=== PATIENT | female | born 1945 | race Caucasian/White ===

== ENCOUNTER 2016-11-13 06:49 | Inpatient (IN) ==
--- NOTE | 2016-11-12 21:06 | Discharge Summary ---
<Nadia Espinal - Last Filed: 11/12/16 21:02> Date of Encounter: 11/12/16 - Discharge Diagnosis (1) Rotator cuff tear arthropathy of right shoulder Priority: Primary Status: Acute (2) Obesity Priority: Secondary Status: Chronic Qualifiers: Obesity type: unspecified obesity type Obesity severity: unspecified obesity severity Qualified Code(s): E66.9 - Obesity, unspecified (3) Chronic pain Priority: Secondary Status: Chronic Comments: Takes [place] 5/325 TID, LD 10/16/16 #90. Continue this. Continue Gabapentin Qualifiers: Chronic pain type: other chronic pain Qualified Code(s): G89.29 - Other chronic pain (4) Hypothyroidism Priority: Secondary Status: Chronic Qualifiers: Hypothyroidism type: unspecified Qualified Code(s): E03.9 - Hypothyroidism , unspecified - Discharge Medications Home Medications: Gabapentin [Neurontin] 300 mg PO TID 06/17/16 [History] Levothyroxine [Synthroid] 50 mcg PO DAILY 06/17/16 [History] diazePAM [Valium] 5 mg PO DAILY 06/17/16 [History] HYDROcodone/Acet 5/325 mg [[place] 5-325 mg] 1 tab PO DAILY #10 tab 11/12/16 [Rx] Alendronate Sodium [Fosamax] 70 mg PO QWEEK 11/13/16 [History] Calcium Carbonate [Calcium] 500 mg PO DAILY 11/13/16 [History] Meloxicam [Mobic] 15 mg PO DAILY 11/13/16 [History] Naproxen Sodium [Aleve] 220 mg PO Q12H PRN 11/13/16 [History] Oxycodone HCl 15 mg PO TID PRN 11/13/16 [History] Allergies/Adverse Reactions: Allergies ibuprofen [From Motrin] Adverse Reaction (Verified 11/13/16 07:45) Watery Eye Primary care physician: Lucius Vallecillo - Patient Status Disposition: Home, Self-Care Condition: Good - Discharge Instructions Follow Up With: Lucius Vallecillo MD [Primary Care Provider] - - Hospital Course Hospital course: Ms. Pemberton is a 71 year old female - Time Spent with Patient Total time spent providing and/or coordinating discharge services: <Dean Lemon - Last Filed: 11/14/16 06:45> Date of Encounter: 11/14/16 Time of Encounter: 06:45 - Discharge Diagnosis (1) Hypothyroidism Priority: Secondary Status: Chronic Qualifiers: Hypothyroidism type: unspecified Qualified Code(s): E03.9 - Hypothyroidism , unspecified (2) Thrombocytopenia Priority: Secondary Status: Acute (3) Rotator cuff tear arthropathy of right shoulder Priority: Primary Status: Acute (4) Obesity Priority: Secondary Status: Chronic Qualifiers: Obesity type: unspecified obesity type Obesity severity: unspecified obesity severity Qualified Code(s): E66.9 - Obesity, unspecified Primary care physician: Lucius Vallecillo - Patient Status Functional capacity at discharge: uses cane/walker Overall status at discharge: patient is progressing back to baseline - Hospital Course Hospital course: Ms. Pemberton is a 71 year old female The patient had an uneventful postoperative course. They received antibiotics and physical therapy and were discharged in stable condition. There will follow -up in the office in 2 weeks. - Time Spent with Patient Total time spent providing and/or coordinating discharge services:
[2016-11-13] MEDS ORDERED: Ringers Solution, Lactated 1,000 ML IVC SCH (07:15)
[2016-11-13] MEDS ORDERED: CeFAZolin Pre 2,000 MG/100 ML 2,000 MG/100 ML BAG IVPB ONE (07:15)
[2016-11-13] MEDS ORDERED: Lidocaine -MPF 1% 2 ML VIAL ID ONE (07:15)
[2016-11-13] MEDS ORDERED: Famotidine 20 MG/2 ML VIAL IVP ONE (07:16)
--- NOTE | 2016-11-13 07:47 | History & Physical Report ---
Date of Encounter: 11/13/16 Time of Encounter: 07:46 24 Hour HP Update - Instructions Instructions: If the History and Physical is less than 30 days old and was completed prior to A.M. admission and or procedure and has NOT been updated on calendar day of procedure please complete this update prior to performing procedure. - Update Patient reports changes in Medical Condition: No Changes in examination, assessment, or condition: No Changes in Medication: No Preop tests/diagnostics Reviewed: Yes Surgery Remains Indicated: Yes Consent for Planned Operative Procedure(s) Verified: Yes - Pre-Operative Checklist Preoperative Checklist Indicated: No Prophylactic Antibiotic Ordered: Yes Is VTE Prophylaxis Indicated?: Yes
[2016-11-13] MEDS ORDERED: *HR* Midazolam HCl 2 MG/2 ML VIAL ONE (08:01)
[2016-11-13] MEDS ORDERED: *HR* Propofol 200 MG/20 ML VIAL IVP ONE (08:01)
[2016-11-13] MEDS ORDERED: *HR* FentaNYL (PF) 100 MCG/2 ML VIAL ONE (08:01)
[2016-11-13] MEDS ORDERED: Lidocaine -MPF 2% 2 ML VIAL ONE (08:03)
--- NOTE | 2016-11-13 08:13 | Anesthesia Evaluation PreOp ---
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: Other (Chronic Back Pain Lumbar DDD) Other Medical History: Thyroid, Other (Obese) Anesthesia History: No Prior Anesthetic Complications : No Alcohol Use: rarely Drug use: none Medications and Allergies Gabapentin [Neurontin] 300 mg PO TID 06/17/16 [History] Levothyroxine [Synthroid] 50 mcg PO DAILY 06/17/16 [History] diazePAM [Valium] 5 mg PO DAILY 06/17/16 [History] HYDROcodone/Acet 5/325 mg [[place] 5-325 mg] 1 tab PO DAILY #10 tab 11/12/16 [Rx] Alendronate Sodium [Fosamax] 70 mg PO QWEEK 11/13/16 [History] Calcium Carbonate [Calcium] 500 mg PO DAILY 11/13/16 [History] Meloxicam [Mobic] 15 mg PO DAILY 11/13/16 [History] Naproxen Sodium [Aleve] 220 mg PO Q12H PRN 11/13/16 [History] Oxycodone HCl 15 mg PO TID PRN 11/13/16 [History] Allergies ibuprofen [From Motrin] Adverse Reaction (Verified 11/13/16 07:45) Watery Eye - Meds/Allergy Pre-op Review Medications Reviewed: Yes Allergies Reviewed: Yes Beta Blockers on Current Med List: No Anesthesia Results - Labs Laboratory Tests 10/24/16 10/24/16 09:30 09:30 Hgb 13.3 Hct 39.9 Plt Count 138 L Sodium 141 Potassium 3.8 BUN 21 H Creatinine 0.87 - Imaging EKG: report reviewed (SB) Anesthesia Exam O2 Sat Height 1.52 m Height 1.52 m Height 1.52 m Weight 81.193 kg Weight 81.193 kg Weight 81.193 kg O2 Sat by Pulse Oximetry 90 O2 Sat by Pulse Oximetry 90 Vital Signs Temp Pulse Resp BP Pulse Ox 98.1 F 64 18 114/76 90 11/13/16 07:21 11/13/16 07:21 11/13/16 07:21 11/13/16 07:21 11/13/16 07:21 Height: 5'0 Weight: 179 lbs NPO (# of Hours): MN Pain Scale: 0 - HEENT Pupil (Motor): Pupils equal, EOMI Mallampati: III Teeth: Edentulous Denture Type: Upper: Complete Oral Opening: Less than or equal to 3 - SUPERVISOR [employer]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
[2016-11-13] MEDS ORDERED: ROPIVACAINE HCL/PF 0.5% 30 ML VIAL ONE (08:17)
[2016-11-13] MEDS ORDERED: Bupivacaine/Clonidine Syringe 1 EACH SYRINGE ONE (08:18)
[2016-11-13] MEDS ORDERED: *HR* Labetalol 100 MG/20 ML MDV IVP PRN (08:37)
[2016-11-13] MEDS ORDERED: Ondansetron 4 MG/2 ML VIAL IVP PRN ×2 (08:37→10:37)
--- NOTE | 2016-11-13 08:40 | Anesthesia Procedures ---
Date of Encounter: 11/13/16 Time of Encounter: 08:38 Procedures: Anesthesia - Nerve Block Procedure Date: 11/13/16 Time: 08:38 Allergies/Adv Reactions: ibuprofen Pre-op Diagnosis: right shoulder rc arthropathy Surgical Procedure: right reverse TSA Checklist: Correct Patient Identifier, Correct procedure, History checked Correct side: Right Blood Thinner: No Monitor Applied: EKG, BP, Pulse Oximetry Supplemental Oxygen via Nasal Cannula (L/min): 2 Sedation: Fentanyl (mcg): 100 Indication: Post Op Analgesia Pre-op Neuro Deficits: No Block Type: Supraclavicular, Other (CP) Catheter placed: No Sterile Technique: Yes Ultrasound used: Yes Anatomy identified: Yes Visual spread of Local: Yes Neuro Stimulation: No Blood on Needle Aspiration: No Smooth Injection of Local: Yes Pain with Injection of Local: No Prep: Chlorhexadine Needle: 22 x 50 mm Stimuplex Local: 0.25% Bupivicaine w/Clonidine 20 mcg/cc, Tetracaine, Ropivacaine Volume (cc): 40 Number of Attempts: 1 Complications: None/effective block Vitals: Vital Signs/O2 Sat/Glucose, Most Recent Temp Pulse Resp BP Pulse Ox 98.1 F 51 16 130/89 99 11/13/16 07:25 11/13/16 08:20 11/13/16 08:20 11/13/16 08:20 11/13/16 08:20
[2016-11-13] MEDS ORDERED: *HR* Succinylcholine 200 MG/10 ML VIAL IVP ONE (08:48)
[2016-11-13] MEDS ORDERED: Lidocaine -MPF 4% 5 ML AMPUL ONE (08:48)
[2016-11-13] MEDS ORDERED: Ondansetron 4 MG/2 ML VIAL ONE (09:01)
[2016-11-13] MEDS ORDERED: EPHEDrine 50 MG/ML VIAL ONE (09:17)
--- NOTE | 2016-11-13 09:31 | Orthopedic Operative Note ---
Date of procedure: 11/13/16 Pre-op diagnosis: Right shoulder rotator cuff tear arthropathy Post-op diagnosis: same Procedure: Procedure: Right Total Shoulder Replacment Reverse, Estimated blood loss: 100 cc Hardware: Metal and polyethylene replacement: Arthrex small glenoid baseplate, 2 4.5 screws. 1 6.5 screw, 36+4 glenosphere, 6 humeral stem, poly insert 6 Exam Under anesthesia: Full motion and no instability Procedural Notes: Grade 4 arthritic changes humeral head irreparable tear supraspinatus tendon. Operative procedure: The patient was brought to the operating room and placed on the operating room table. After general anesthesia was administered the operative shoulder was examined. Findings were noted. The patient was placed in the modified beachchair position. All pressure points were padded appropriately. And the head was stabilized in the neutral position. The operative extremity was prepped and draped in the sterile surgical fashion. The patient received IV antibiotics prior to skin incision. A standard deltopectoral approach was made to the operative shoulder. Incision was made to the skin and subcutaneous tissue,hemo stasis was obtained with Bovie cautery. Using careful blunt dissection the cephalic vein was identified and mobilized medially. The deltopectoral interval was developed and the clavipectoral fascia was incised. The subscap was released off the lesser tuberosity and tagged with #2 FiberWire suture it was irreparable. The humerus was dislocated patient noted to have irreparable tear supraspinatus tendon, and the humeral cut was made along the anatomic neck. Patient noted to have grade 4 arthritic changes humeral head. Anterior and posterior Bankart retractors were placed to expose the glenoid. The glenoid guide was seated and the centering hole was made. It was reamed with the appropriate reamer. The small baseplate was seated and secured with (2) 4.5 screws and one 6.5 screw. The baseplate was irrigated and dried and the 36+4 Glenosphere was seated and secured with the George taper. The George taper was tested and found to be secure the humerus was redislocated and prepared with the diaphyseal reamers, followed by a broaching process up to the appropriate size 6 in the patient's anatomic version. The metaphyseal reamer was then utilized. Trial reduction found the shoulder to be relocatable. Trial components were removed. The appropriate 6 stem was impacted in place in the patient's anatomic version. Trial reduction found the shoulder to be relocatable and stable with the appropriate 6 Trial component was removed and the real 6 Meghan was seated and secured the shoulder was reduced. The shoulder had excellent motion and excellent stability and no evidence of dislocation. The deep tissue was irrigated with pulse irrigation. The deltopectoral interval was closed with a running #1 PDS suture, subcutaneous tissue was irrigated and closed with 0 PDS suture, the skin was closed with Dermabond. The patient was placed in a sterile dressing, abduction brace and extubated. The patient was then transferred to the recovery room in stable condition. Anesthesia: ARLEY Surgeon: Dean Lemon Perfect Binder Setter: Nadia Espinal Condition: stable Disposition: PACU
--- NOTE | 2016-11-13 10:14 | Anesthesia Evaluation Post Op ---
Date of Encounter: 11/13/16 Time of Encounter: 10:13 - Vital Signs Vital Signs: Vital Signs/O2 Sat/Glucose, Most Recent Temp Pulse Resp BP Pulse Ox 97.8 F 76 16 128/81 97 11/13/16 09:45 11/13/16 10:05 11/13/16 10:05 11/13/16 10:05 11/13/16 10:05 - Lungs Lungs: Clear Ascult./Percussion - Airway Airway: Non-obstructed - Cardiovascular Regular Rate - Mental Status Mental Status: Alert & Oriented, Answers Appropriately - Pain Pain Scale: 0 Pain Scale used: Numeric (1 - 10) - Nausea Vomiting Nausea Vomiting: Not Present - Hydration Hydration: NPO - Discharge PostOp Status: Transfer Patient to floor
[2016-11-13 10:21] LABS: Hematocrit 36.1 % (35.3-44.9); Hemoglobin 11.8 g/dL (11.5-15.4)
[2016-11-13] MEDS ORDERED: *HR* OxyCODONE Immed Rel 5 MG TABLET PO PRN ×2 (10:37)
[2016-11-13] MEDS ORDERED: MOM Conc 10 ML UD.LIQ PO PRN (10:37)
[2016-11-13] MEDS ORDERED: Temazepam 15 MG CAPSULE PO PRN (10:37)
[2016-11-13] MEDS ORDERED: Naloxone 0.4 MG/ML INJ IVP PRN (10:37)
[2016-11-13] MEDS ORDERED: NON-FORMULARY MEDICATION 1 EACH EACH (Alendronate Sodium [Fosamax] 70 MG) PO SCH (10:37)
[2016-11-13] MEDS ORDERED: *HR* HYDROmorphone (PF) 1 MG/ML SYRINGE IVP PRN (10:37)
[2016-11-13] MEDS ORDERED: Sennosides 8.6 MG TABLET PO PRN (10:37)
[2016-11-13] MEDS: Ringers Solution, Lactated 1,000 ML IVC SCH ×2 (12:08→23:56)
[2016-11-13] MEDS: Gabapentin 300 MG CAPSULE PO SCH ×3 (12:11→20:50)
[2016-11-13] MEDS: diazePAM 5 MG TABLET PO SCH (12:15)
[2016-11-13] MEDS: *HR* Enoxaparin 30 MG/0.3 ML SYRINGE SQ SCH (17:54)
[2016-11-13] MEDS: ceFAZolin 2,000 MG in D5% in Water 100 ML IVPB SCH ×2 (17:54→23:57)
[2016-11-13] MEDS ORDERED: *HR* Enoxaparin 30 MG/0.3 ML SYRINGE SQ SCH (18:00)
[2016-11-14] MEDS: *HR* Enoxaparin 30 MG/0.3 ML SYRINGE SQ SCH (05:58)
[2016-11-14 06:31] LABS: Hematocrit 37.4 % (35.3-44.9); Hemoglobin 12.2 g/dL (11.5-15.4)
--- NOTE | 2016-11-14 06:46 | Orthopedics Progress Note ---
Date of Encounter: 11/14/16 Time of Encounter: 06:46 - Assessment and Plan (1) Hypothyroidism Current Visit: No Status: Chronic Qualifiers: Hypothyroidism type: unspecified Qualified Code(s): E03.9 - Hypothyroidism , unspecified (2) Thrombocytopenia Current Visit: No Status: Acute (3) Rotator cuff tear arthropathy of right shoulder Current Visit: Yes Status: Acute (4) Obesity Current Visit: Yes Status: Chronic Qualifiers: Obesity type: unspecified obesity type Obesity severity: unspecified obesity severity Qualified Code(s): E66.9 - Obesity, unspecified Subjective Interval history: Patient was seen this morning doing well without complaints. Afebrile vital signs stable. Operative extremity: Neurovascularly intact Dressing clean dry and intact Calves nontender Assessment and plan: Continue with postoperative care Discharged today Objective Vital signs: Vital Signs Temp Pulse Resp BP Pulse Ox 11/14/16 04:04 98.1 F 69 16 118/64 95 11/13/16 23:51 97.8 F 71 16 118/53 94 11/13/16 20:44 97.7 F 56 16 109/68 93 11/13/16 14:01 72 18 116/75 96 11/13/16 13:40 97.4 F L 72 18 116/75 96 11/13/16 12:35 97.3 F L 66 18 118/72 97 11/13/16 11:40 97.4 F L 67 18 122/93 98 11/13/16 11:04 97.6 F 65 18 106/65 99 11/13/16 10:30 97.6 F 65 18 120/68 97 11/13/16 10:15 97.2 F L 68 16 118/72 98 11/13/16 10:05 76 16 128/81 97 11/13/16 09:55 80 16 132/80 97 11/13/16 09:45 97.8 F 97 14 134/89 97 11/13/16 08:20 51 16 130/89 99 11/13/16 07:25 98.1 F 63 18 114/76 90 11/13/16 07:21 98.1 F 64 18 114/76 90 Intake and Output 11/13/16 11/13/16 11/14/16 15:59 23:59 07:59 Intake Total 1000 / 1000 1340 / 1340 100 / 100 Output Total 500 / 500 350 / 350 Balance 500 / 500 990 / 990 100 / 100 Intake: IV Fluids 1000 / 1000 1100 / 1100 100 / 100 Lactated Ringers 1,000 ML 1000 / 1000 1000 / 1000 @ 75 mls/hr IVC .[id number] MONICA Rx#:[id number] Ancef 2,000 MG In 100 / 100 100 / 100 Dextrose 5% 100 ML @ 200 mls/hr IVPB Q8HR MONICA Rx#: [id number] Oral 240 / 240 Output: Urine 400 / 400 350 / 350 Estimated Blood Loss 100 / 100 Other: # Voids 1 1 - Labs CBC & BMP: 11/14/16 06:09 - VTE Documentation of Mechanical Device: Intermittent pneumatic compression device Consult Discharge Plan - Plan Referrals: Lucius Vallecillo MD [Primary Care Provider] -
[2016-11-14 07:04] VITALS: BP 115/55
[2016-11-14] MEDS: Gabapentin 300 MG CAPSULE PO SCH (08:23)
[2016-11-14] MEDS: diazePAM 5 MG TABLET PO SCH (08:25)
== END 2016-11-14 12:40 | disposition home or self-care (01) | DRG 483 ==
LOC: SAMDAY 06:49 → 3NENU 10:29
PROVIDERS: ADMIT Orthopaedic Surgery; ATTEND Orthopaedic Surgery

== ENCOUNTER 2017-04-04 15:30 | Observation (INO) ==
[2017-04-04] MEDS ORDERED: Nitroglycerin 0.4 MG TAB.SUBL SL PRN (15:59)
[2017-04-04] MEDS ORDERED: Aspirin 81 MG TAB.CHEW PO ONE (15:59)
[2017-04-04 16:24] LABS: Basophils % 0.5 %; Eosinophils # 0.1 K/mcL (0.0-0.6); Eosinophils % 2.2 %; Hematocrit 38.3 % (35.3-44.9); Hemoglobin 12.5 g/dL (11.5-15.4); Immature Granulocytes % 0.2 % (0-4); Lymphocytes # 1.5 K/mcL (0.6-4.6); Lymphocytes % 25.6 %; Mean Corpuscular HGB Conc 32.6 g/dL (31.6-35.5); Mean Corpuscular Hemoglobin 29.5 pg (28.0-33.3); Mean Corpuscular Volume 90.3 fL (83.0-100.0); Mean Platelet Volume 9.9 fL (9.4-12.4); Monocytes # 0.6 K/mcL (0.0-1.3); Neutrophils # 3.6 K/mcL (1.6-8.9); Platelet Count 135 K/mcL (140-400); Red Blood Count 4.24 M/mcL (3.82-4.97); Red Cell Distribution Width 15.1 % (11.5-14.5); Segmented Neutrophils % 61.5 %
[2017-04-04 16:36] LABS: BUN/Creatinine Ratio 16 (6-26); Blood Urea Nitrogen 16 mg/dL (7-20); Calcium 9.6 mg/dL (8.6-10.8); Carbon Dioxide 30 mEq/L (19-29); Chloride 106 mEq/L (98-109); Glucose 81 mg/dL (70-99); Osmolality,Calculated 294 (280-300); Potassium 3.9 mEq/L (3.5-4.5); Sodium 142 mEq/L (136-145); eGFR For African Americans > 60 (> 60); eGFR For Non-African Americans 57 (> 60)
--- NOTE | 2017-04-04 16:38 | Emergency Department Note ---
Disposition Clinical Impression: Chest pain Qualifiers: Chest pain type: unspecified Qualified Code(s): R07.9 - Chest pain, unspecified Disposition: Admitted As Inpatient Condition: Good Time of Disposition: 17:12 General Adult HPI - General Chief complaint: ED Chest Pain Stated complaint: CP/FANNY Time Seen by Provider: 04/04/17 15:50 Source: patient Limitations: no limitations Nursing Notes Reviewed: Yes Vital Signs Reviewed: Yes - History of Present Illness HPI Narrative: 71-year-old female presenting to the emergency department from urgent care for chest pain rule out. Patient was seen in urgent care who completed an EKG showing sinus bradycardia and right bundle branch block. Today patient was at work and around 12:30 she started having chest pain with associated diaphoresis. She denies vomiting or radiation of the pain. The pain was substernal and felt like a pressure. Patient has never had a cardiac workup in the past. Denies having stent placements. Denies stroke or being on anticoagulation. Patient currently having chest pressure at this time. Pain Scale: 9 - Related Data Home Medications Medication Instructions Recorded Confirmed Gabapentin [Neurontin] 300 mg PO TID 06/17/16 04/04/17 Levothyroxine [Synthroid] 50 mcg PO QAM 06/17/16 04/04/17 diazePAM [Valium] 5 mg PO DAILY 06/17/16 04/04/17 Calcium Carbonate [Calcium] 500 mg PO DAILY 11/13/16 04/04/17 Naproxen Sodium [Aleve] 220 mg PO Q12H PRN 11/13/16 04/04/17 Oxycodone HCl [Oxycodone HCl] 10 mg PO TID PRN 04/04/17 04/04/17 Allergies Allergy/AdvReac Type Severity Reaction Status Date / Time ibuprofen [From Motrin] AdvReac Watery Eye Verified 11/13/16 07:45 All systems ED: reviewed and negative except as stated. Constitutional: Denies: fever, chills, weakness Eyes: Reports: as per HPI Cardiovascular: Reports: chest pain, palpitations. Denies: syncope Respiratory: Denies: cough, dyspnea, wheezes, hemoptysis Gastrointestinal: Reports: nausea. Denies: abdominal pain, vomiting Genitourinary: Reports: as per HPI Musculoskeletal: Reports: as per HPI Integumentary: Reports: as per HPI Neurological: Denies: headache, numbness, paresthesias Psychiatric: Reports: as per HPI Endocrine: Reports: as per HPI Hematological/Lymphatic: Reports: as per HPI Allergic/Immunologic: Reports: as per HPI Past Medical History - Past Medical History Attestation: Yes The following information was validated with the patient. 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 Absent: scleral icterus, conjunctival injection - Chest Chest inspection: Present: normal inspection, symmetric chest wall rise. Absent : tenderness, rash - Respiratory Respiratory exam: Present: normal lung sounds bilaterally. Absent: respiratory distress, wheezes, stridor - Cardiovascular Cardiovascular exam: Present: normal rhythm, bradycardia, normal heart sounds - Abdominal Exam Abdominal exam: Present: soft, Non-Tender. Absent: distention, guarding, rebound - Extremities Exam Extremities exam: Present: normal inspection, full ROM - Neurological Exam Neurological exam: Present: alert, oriented X3 - Psychiatric Psychiatric exam: Present: normal affect, normal mood - Skin Skin exam: Present: warm, intact Course Course Narrative: 71-year-old female presenting to the emergency department with chief complaint of chest pain. Patient states while at work she had acute onset of chest pain concerning for ACS. EKG did show T-wave abnormalities in V1 and 2 and 3 although this was seen on previous EKG. We will do basic lab work cardiac troponin and EKG. Disposition admission at this time. - Reevaluation(s) Reevaluation #1: Troponin within normal limits. Patient's heart score is greater than 4. Admission to hospitalist Dr. West. He accepts the patient. Time: 17:11 Vital Signs Temperature 98.1 F 04/04/17 15:31 Pulse Rate 51 04/04/17 15:31 Respiratory Rate 18 04/04/17 15:31 Blood Pressure 139/72 04/04/17 15:31 O2 Sat by Pulse Oximetry 94 04/04/17 15:31 Temperature 97.9 F 10/04/17 19:09 Pulse Rate 83 04/04/17 19:09 Respiratory Rate 18 04/04/17 19:09 Blood Pressure 158/75 04/04/17 19:09 O2 Sat by Pulse Oximetry 96 04/04/17 19:09 Oxygen Delivery Oxygen Delivery Room Air Medical Decision Making - Lab Data Result diagrams: 04/04/17 16:16 04/04/17 16:16 Lab Results 04/04/17 04/04/17 04/04/17 Range/Units 16:16 16:16 16:16 WBC 5.8 (4.3-11.1) K/mcL RBC 4.24 (3.82-4.97) M/mcL Hgb 12.5 (11.5-15.4) g/dL Hct 38.3 (35.3-44.9) % MCV 90.3 (83.0-100.0) fL MCH 29.5 (28.0-33.3) pg MCHC 32.6 (31.6-35.5) g/dL RDW 15.1 H (11.5-14.5) % Plt Count 135 L (140-400) K/mcL MPV 9.9 (9.4-12.4) fL Immature Gran % 0.2 (0-4) % Seg Neutrophils % 61.5 % Lymphocytes % 25.6 % Monocytes % 10.0 % Eosinophils % 2.2 % Basophils % 0.5 % Neutrophils # 3.6 (1.6-8.9) K/mcL Lymphocytes # 1.5 (0.6-4.6) K/mcL Monocytes # 0.6 (0.0-1.3) K/mcL Eosinophils # 0.1 (0.0-0.6) K/mcL Basophils # 0.0 (0.0-0.2) K/mcL Sodium 142 (136-145) mEq/L Potassium 3.9 (3.5-4.5) mEq/L Chloride 106 (98-109) mEq/L Carbon Dioxide 30 H (19-29) mEq/L BUN 16 (7-20) mg/dL Creatinine 0.97 (0.57-1.11) mg/dL Est GFR ( Amer) > 60 (> 60) Est GFR (Non-Af Amer) 57 L (> 60) BUN/Creatinine Ratio 16 (6-26) Glucose 81 (70-99) mg/dL Calculated Osmolality 294 (280-300) Calcium 9.6 (8.6-10.8) mg/dL Troponin I 0.00 (0-0.03) ng/mL Attestation Statement - Attestation Attestation: I examined this patient and my medical decision-making was reviewed with the Resident Physician. I agree with the documented findings, disposition and treatment plan as described except to the extent set forth below. 8-year-old female with chest pain. Pain is typical in nature. We will admit for cardiology consultation and serial troponins as well as EKGs.
[2017-04-04] MEDS ORDERED: Naloxone 0.4 MG/ML INJ IVP PRN (18:44)
--- NOTE | 2017-04-04 19:25 | Internal Med History&Physical ---
<Chloé Benjamin - Last Filed: 04/04/17 19:15> Date of Encounter: 04/04/17 Time of Encounter: 19:15 Assessment and Plan (1) Chest pain Current visit: Yes Status: Acute Patient reports chest tightness accompanied by shortness of breath and lightheadedness today while working, relieved by nitro given in ED. EKG showed sinus bradycardia with right bundle branch block, unchanged from previous ekg in June. Troponin was negative at 0.00. May be related to bradycardia, or progressed aortic stenosis, in addition to consideration of traditional ACS. Continuous athletic monitor serial troponins echocardiogram Cardiology consulted given patient's bradycardia and history of aortic stenosis. NPO after midnight in case of possible stress or LHC as determined by cardiology. Qualifiers: Chest pain type: precordial pain Qualified Code(s): R07.2 - Precordial pain (2) Aortic stenosis Current visit: Yes Status: Acute Upon review of records, found patient had mild aortic stenosis on echocardiogram in 2014 and MAYTE was planned, but patient did not follow up. Continuous athletic monitor echocardiogram to check for progression of aortic stenosis cardiology consulted, will need to be called in the morning. Qualifiers: Cardiac valve disease etiology: etiology unspecified Qualified Code(s): I35.0 - Nonrheumatic aortic (valve) stenosis (3) Bradycardia Current visit: Yes Status: Acute Patient with sinus bradycardia, HR in the 50s. She reports occastional lightheadedness with position changes and had some shortness of breath and chest pain today. Continuous athletic monitor echocardiogram cardiology consulted, will need to be contacted in the morning. (4) Hypothyroidism Current visit: Yes Status: Acute Patient with history of hypothyroidism and is on synthroid. Will check TSH with AM labs given patient's bradycardia. Continue home dose of synthroid. Qualifiers: Hypothyroidism type: unspecified Qualified Code(s): E03.9 - Hypothyroidism , unspecified (5) Hypothyroidism Current visit: No Status: Chronic Qualifiers: Hypothyroidism type: unspecified Qualified Code(s): E03.9 - Hypothyroidism , unspecified (6) DVT prophylaxis Current visit: Yes Status: Acute anti-embolic stockings lovenox SQ daily Internal Medicine - H&P: HPI Chief complaint: chest pain Admitted From: Emergency Dept Plans for Post Hospital Care: Home History of present illness: Ms. Pemberton is a 71 year old female with hypothyroid, anxiety and arthritis, presents to the ED today with complaints of chest pain. Patient reports she was working at [employer] today and developed a "funny" feeling in her chest. She describes it as "tightness" and it was accompanied by shortness of breath, dizziness, and diaphoresis. He pain was relieved by nitro given in the ED. She denies any headache, palpitations, cough, fever, chills, nausea or vomiting. Evaluation in the ED included an EKG which showed sinus bradycardia with right bundle branch block and no changes from previous ekg. CXR showed no acute cardiopulmonary disease. Troponin was negative at 0.00. On exam, patient is alert and oriented, in no acute distress. She denies any current chest pain. Heart has regular rhythm, with bradycardic rate. Lungs are clear bilaterally to auscultation. Trace BLE edema. Past Med Surg Social Fam HX - Past Medical History Medical history: thyroid disease, other Psychiatric history: no psych history - Past Surgical History Surgical History: appendectomy, cholecystectomy, hysterectomy - Social History Smoking Status: Never smoker Smokeless Tobacco Status: No Alcohol use: none Drug use: none - Family History Father Living Status: Hx Family Cancer: Yes Mother Living Status: Hx Family Cardiac Disorders: Yes (passed from a heart attack) Internal Medicine - H&P: Meds Gabapentin [Neurontin] 300 mg PO TID 06/17/16 [History] Levothyroxine [Synthroid] 50 mcg PO QAM 06/17/16 [History] diazePAM [Valium] 5 mg PO DAILY 06/17/16 [History] Calcium Carbonate [Calcium] 500 mg PO DAILY 11/13/16 [History] Naproxen Sodium [Aleve] 220 mg PO Q12H PRN 11/13/16 [History] Oxycodone HCl [Oxycodone HCl] 10 mg PO TID PRN 04/04/17 [History] 3 Allergy/AdvReac Type Severity Reaction Status Date / Time ibuprofen [From Motrin] AdvReac Watery Eye Verified 11/13/16 07:45 All Systems PM: A 10-system review of systems was performed and is negative for pertinent findings except as documented above in the HPI. - Constitutional Constitutional: no chills, no fever(s), no night sweats - EENT Eyes: no change in vision, no discharge, no pain, no photophobia Ears: no ear discharge, no ear pain, no tinnitus Nose, mouth and throat: no dysphagia, no nasal discharge, no neck pain, no sore throat - Cardiovascular Cardiovascular ROS IM: chest pain, diaphoresis, dyspnea, lightheadedness, no palpitations, no syncope - Respiratory Respiratory: dyspnea, no cough, no wheezing, no excessive phlegm production - Gastrointestinal Gastrointestinal: no abdominal pain, no diarrhea, no hematemesis, no hematochezia, no melena, no nausea, no vomiting - Genitourinary Genitourinary: no change in urinary stream, no dysuria, no flank pain, no hematuria - Musculoskeletal Musculoskeletal ROS IM: no numbness, no tingling - Integumentary Integumentary IM: no rash, no unusual bruising - Neurological Neurological ROS: no confusion, no convulsions, no focal weakness, no numbness, no tingling, no tremor(s) - Hematologic/Lymphatic Hematologic/Lymphatic: no easy bruising - Constitutional Vitals: Temp Pulse Resp BP Pulse Ox 97.9 F 83 18 158/75 96 04/04/17 19:09 04/04/17 19:09 04/04/17 19:09 04/04/17 19:09 04/04/17 19:09 General appearance: Present: A&O X 3, pleasant, no acute distress - Head Head exam: Present: atraumatic, normocephalic - Eye Eye exam: Present: PERRL, conjuntiva pink, sclera anicteric Pupils: Present: PERRL - Neck Neck exam general surgery: Present: supple, trachea midline. Absent: lymphadenopathy - Respiratory Respiratory exam: Present: CTAB. Absent: accessory muscle use, rales, rhonchi, wheezes - Cardiovascular Cardiovascular exam: Present: bradycardia, RRR, +S1, +S2. Absent: diastolic murmur, gallop, rubs, systolic murmur - GI/Abdominal GI/Abdominal exam: Present: normal bowel sounds, soft, no peritoneal signs. Absent: distended, tenderness - Extremities Exam Extremities exam: Present: pedal edema (trace BLE edema), warm, radial pulses palpable and symmetrical. Absent: calf tenderness, cyanotic - Neurological Exam Neurological exam: Present: CN II-XII intact, oriented X3, no focal deficits. Absent: pronater drift, facial droop, speech deficit - Skin Skin exam: Present: dry, intact Internal Med - H&P Results - Labs CBC & Chem 7: 04/04/17 16:16 04/04/17 16:16 Labs: All Lab Results (24 Hours) 04/04/17 04/04/17 04/04/17 Range/Units 16:16 16:16 16:16 WBC 5.8 (4.3-11.1) K/mcL RBC 4.24 (3.82-4.97) M/mcL Hgb 12.5 (11.5-15.4) g/dL Hct 38.3 (35.3-44.9) % MCV 90.3 (83.0-100.0) fL MCH 29.5 (28.0-33.3) pg MCHC 32.6 (31.6-35.5) g/dL RDW 15.1 H (11.5-14.5) % Plt Count 135 L (140-400) K/mcL MPV 9.9 (9.4-12.4) fL Immature Gran % 0.2 (0-4) % Seg Neutrophils % 61.5 % Lymphocytes % 25.6 % Monocytes % 10.0 % Eosinophils % 2.2 % Basophils % 0.5 % Neutrophils # 3.6 (1.6-8.9) K/mcL Lymphocytes # 1.5 (0.6-4.6) K/mcL Monocytes # 0.6 (0.0-1.3) K/mcL Eosinophils # 0.1 (0.0-0.6) K/mcL Basophils # 0.0 (0.0-0.2) K/mcL Sodium 142 (136-145) mEq/L Potassium 3.9 (3.5-4.5) mEq/L Chloride 106 (98-109) mEq/L Carbon Dioxide 30 H (19-29) mEq/L BUN 16 (7-20) mg/dL Creatinine 0.97 (0.57-1.11) mg/dL Est GFR ( Amer) > 60 (> 60) Est GFR (Non-Af Amer) 57 L (> 60) BUN/Creatinine Ratio 16 (6-26) Glucose 81 (70-99) mg/dL Calculated Osmolality 294 (280-300) Calcium 9.6 (8.6-10.8) mg/dL Troponin I 0.00 (0-0.03) ng/mL - Diagnostic Studies Chest x-ray Additional comments: Chest X-Ray 04/04/17 16:02 IMPRESSION: No acute cardiopulmonary disease. D/ / Maldonado Tamez MD / Maldonado Tamez MD Interpreting Provider: Maldonado Tamez MD <[email or web address] - Last Filed: 04/04/17 22:18> Date of Encounter: 04/04/17 Time of Encounter: 20:05 - Cardiovascular Cardiovascular ROS IM: chest pain, diaphoresis, dyspnea, dyspnea on exertion, lightheadedness, no edema, no irregular heart rhythm, no palpitations, no paroxysmal nocturnal dyspnea, no syncope - Respiratory Respiratory: no cough, no hemoptysis, no chest congestion, no excessive phlegm production, no change in phlegm color - Neurological Neurological ROS: no dizziness, no frequent falls, no vertigo - Psychiatric Psychiatric: no anxiety, no depression - Endocrine Endocrine IM: no polydipsia, no polyuria - Constitutional Vitals: Temp Pulse Resp BP Pulse Ox 97.9 F 83 18 158/75 96 04/04/17 19:09 04/04/17 19:09 04/04/17 19:09 04/04/17 19:09 04/04/17 19:09 General appearance: Present: A&O X 3, no acute distress - Head Head exam: Present: normal inspection - Eye Eye exam: Present: PERRL. Absent: scleral icterus - Neck Neck exam general surgery: Present: full ROM, supple. Absent: tenderness - Expanded Neck Exam Neck exam: Absent: carotid bruit - Respiratory Respiratory exam: Present: CTAB - Cardiovascular Cardiovascular exam: Present: bradycardia, RRR, +S1, +S2, systolic murmur ( subtle/distant grade 1 murmur). Absent: diastolic murmur - GI/Abdominal GI/Abdominal exam: Present: soft. Absent: tenderness - Extremities Exam Extremities exam: Present: full ROM. Absent: calf tenderness, joint swelling - Back Exam Back exam: Absent: CVA tenderness (L), CVA tenderness (R) - Neurological Exam Neurological exam: Present: alert, oriented X3, no focal deficits - Psychiatric Psychiatric exam: Present: normal affect, normal mood - Skin Skin exam: Absent: rash Internal Med - H&P Results - Labs CBC & Chem 7: 04/04/17 16:16 04/04/17 16:16 - EKG Data -: EKG Interpreted by Myself EKG shows normal: sinus rhythm Rate: bradycardia - EKG Data Prior EKG available for review: yes When compared to previous EKG: there is no significant change EKG comments: 04/04/17 22:12 Sinus bradycardia; RBBB; unchanged - Diagnostic Studies Chest x-ray Status: image reviewed by me (negative) - Attending Attestation I discussed the patient KOBUK, PMH, ROS, lab data, and exam findings with Chloé Benjamin CNP. I then saw and examined patient independently as well. Patient currently chest pain free and responded well to nitroglycerin. I reviewed her old ECHO findings and noted her . Given her lack of proper follow up 2 years ago and new presentation with CP, I am concerned about progression of her valvular disease. Therefore, I do not recommend proceeding with stress test just yet. Rather, we'll cycle troponins, EKG's, repeat ECHO, and consult cardiology. Other than my above comments and noted exam findings, I agree with Chloé's assessment and plan.
[2017-04-04] MEDS: Gabapentin 300 MG CAPSULE PO SCH (22:10)
[2017-04-05 05:50] LABS: Basophils % 0.6 %; Eosinophils # 0.2 K/mcL (0.0-0.6); Eosinophils % 3.2 %; Hematocrit 38.4 % (35.3-44.9); Hemoglobin 12.5 g/dL (11.5-15.4); Immature Granulocytes % 0.4 % (0-4); Lymphocytes # 1.3 K/mcL (0.6-4.6); Lymphocytes % 27.1 %; Mean Corpuscular HGB Conc 32.6 g/dL (31.6-35.5); Mean Corpuscular Volume 89.1 fL (83.0-100.0); Mean Platelet Volume 10.1 fL (9.4-12.4); Monocytes # 0.6 K/mcL (0.0-1.3); Monocytes % 11.6 %; Neutrophils # 2.7 K/mcL (1.6-8.9); Platelet Count 139 K/mcL (140-400); Red Blood Count 4.31 M/mcL (3.82-4.97); Red Cell Distribution Width 15.1 % (11.5-14.5); Segmented Neutrophils % 57.1 %
[2017-04-05 06:03] LABS: BUN/Creatinine Ratio 19 (6-26); Blood Urea Nitrogen 15 mg/dL (7-20); Calcium 9.6 mg/dL (8.6-10.8); Carbon Dioxide 31 mEq/L (19-29); Chloride 107 mEq/L (98-109); Chol/HDL Ratio 3.3 (0-4.9); Cholesterol 184 mg/dL (< 200); Glucose 107 mg/dL (70-99); HDL Cholesterol 55 mg/dL (40-59); LDL Cholesterol,Calculated 113 mg/dL (0-99); Osmolality,Calculated 299 (280-300); Sodium 144 mEq/L (136-145); Triglycerides 78 mg/dL (< 150); eGFR For African Americans > 60 (> 60); eGFR For Non-African Americans > 60 (> 60)
[2017-04-05 06:26] LABS: Thyroid Stimulating Hormone 4.034 mcIU/mL (0.350-4.840)
--- NOTE | 2017-04-05 08:27 | Cardiology Consult Note ---
Date of Encounter: 04/05/17 Time of Encounter: 08:25 Assessment and Plan (1) Chest pain Current Visit: Yes Status: Acute Per Cardiology: Atypical symptoms. Troponin 0.003. Echo shows EF 65%, NSWMA. A lengthy discussion with patient and daughter regarding potential further ischemic evaluation in terms of stress test, however at this point they prefer to monitor and observe and follow-up in outpatient setting. Will discuss and review with Dr. Winston. Cardiology will sign off, re-consult as needed, follow-up scheduled in 3-4 weeks. Qualifiers: Chest pain type: precordial pain Qualified Code(s): R07.2 - Precordial pain (2) Aortic stenosis Current Visit: Yes Status: Chronic Per Cardiology: Last echo July 2014 with EF 65%, mild diastolic dysfunction, mild aortic stenosis, no pulmonary hypertension, NSWMA. MAYTE August 2014 showed bicuspid aortic valve with mild aortic stenosis with no significant aortic root dilation. Current echo shows mild , no PHTN. Will follow as outpatient. Qualifiers: Cardiac valve disease etiology: etiology unspecified Qualified Code(s): I35.0 - Nonrheumatic aortic (valve) stenosis (3) Bradycardia Current Visit: Yes Status: Chronic Per Cardiology: Per patient and daughter, known history of bradycardia. Upon review of records heart rates appear to run in the 40s to 50s over the past few years. Sinus bradycardia with average heart rate 55, lowest heart rate 50 and the morning, currently sinus bradycardia in the 50s. Does not appear to be on AV kaylee blocking agents. Has hypothyroidism, TSH within normal limits. Continue to monitor. Discussion w patient/family: The assessment and plan as outlined above was discussed with the patient and/or family members who expressed understanding and agreement. All questions were answered. Thank you for involving us in the care of your patient. Please call with any questions. History of Present Illness Consult date: 04/05/17 Requesting physician: Abel Tyler Consult reason: Hx of , Bradycardia, CP Chief complaint: Chest tightness, Weakness History of present illness: Ms. Pemberton is a 71 year old female with relevant past medical history of mild aortic stenosis with bicuspid aortic valve on MAYTE from August 2014 and hypothyroidism. Cardiology consult due to history of aortic stenosis, bradycardia, and chest pain. Patient seen today with daughter at bedside. Prior to event yesterday she denies any chest pain, dyspnea on exertion, palpitations, dizziness, syncope, falls. She reports a known history of "slow heart rates ". She reports yesterday while at work she increased her work load after not working for about 8 months. She states she developed midsternal chest squeezing/tightness sensation that lasted for about 5 minutes and eventually subsided. She reports during this event she felt "general weakness all over". She denied any pain to her left neck, jaw, left arm area and denied any palpitations. Denied any nausea or vomiting or shortness of breath with these events. She reports about total of 3 events throughout the hour. She denies any recent fever, chills, nausea, vomiting, diarrhea, cough. She does report mild increase in overall fatigue over the past few weeks with returning back to work. Past Med Surg Social Fam HX - Past Medical History Attestation: Yes The following information was validated with the patient. Source: patient, old records reviewed, obtained from family Medical history: thyroid disease, valvular heart disease, other Psychiatric history: no psych history - Past Surgical History Surgical History: appendectomy, cholecystectomy, hysterectomy - Social History Smoking Status: Never smoker Smokeless Tobacco Status: No Alcohol use: none Drug use: none - Family History Father Living Status: Hx Family Cancer: Yes Mother Living Status: Hx Family Cardiac Disorders: Yes (passed from a heart attack) Medications and Allergies Gabapentin [Neurontin] 300 mg PO TID 06/17/16 [History] Levothyroxine [Synthroid] 50 mcg PO QAM 06/17/16 [History] diazePAM [Valium] 5 mg PO DAILY 06/17/16 [History] Calcium Carbonate [Calcium] 500 mg PO DAILY 11/13/16 [History] Naproxen Sodium [Aleve] 220 mg PO Q12H PRN 11/13/16 [History] Oxycodone HCl [Oxycodone HCl] 10 mg PO TID PRN 04/04/17 [History] 3 Allergy/AdvReac Type Severity Reaction Status Date / Time ibuprofen [From Motrin] AdvReac Watery Eye Verified 11/13/16 07:45 All Systems Review: A 10-system review of systems was performed and is negative for pertinent findings except as documented above in the HPI. - Constitutional Constitutional: fatigue, weakness - Cardiovascular Cardiovascular: as per HPI, chest pain with exertion Physical Examination Vital Signs, Last 4 Hours Temp Pulse Resp BP Pulse Ox 04/05/17 06:36 97.7 F 45 17 144/76 94 General: Conversant, No Apparent Distress HEENT: Atraumatic, Normocephaly, Mucus Membranes Moist Neck: No JVD, Normal carotid pulses Cardiac: Reg Rate and Rhythm, Normal S1 and S2, No Murmur Lungs: Normal Breath Sounds, No Wheeze, Rales, Rhonchi Neuro: Alert and responsive, No focal deficits noted Abdomen: Soft, Non-Tender Skin: No rashes noted on visualized skin Musculoskeletal: No Chest Wall Tenderness Extremities: No Clubbing, No Cyanosis, No Edema, Normal Pulses Results 04/05/17 05:37 04/05/17 05:37 Lab Results Laboratory Tests 04/04/17 04/04/17 04/05/17 16:16 22:08 05:37 Troponin I 0.00 0.00 LDL Cholesterol, Calc 113 H TSH 4.034 04/05/17 05:37 Troponin I 0.00 LDL Cholesterol, Calc TSH ITS Impressions Chest X-Ray 04/04/17 16:02 IMPRESSION: No acute cardiopulmonary disease. D/ / Maldonado Tamez MD / Maldoando Tamez MD Interpreting Provider: Maldonado Tamez MD Active Medications Acetaminophen (Tylenol) 650 mg PO Q6HR PRN PRN Reason: Mild Pain (1-3) Stop: 10/04/17 18:45 Diazepam (Valium) 5 mg PO DAILY [facility] Stop: 10/05/17 09:01 Docusate Sodium (Colace) 100 mg PO BID PRN PRN Reason: Constipation Stop: 10/04/17 18:45 Enoxaparin Sodium (Lovenox) 40 mg SQ 0700 [facility] PRN Reason: Protocol Stop: 10/05/17 07:01 Gabapentin (Neurontin) 300 mg PO TID [facility] Stop: 10/04/17 21:01 Last Admin: 04/04/17 22:10 Dose: 300 mg Levothyroxine Sodium (Synthroid) 50 mcg PO 0630 [facility] Stop: 10/05/17 06:31 Naloxone HCl (Narcan) 0.4 mg IVP Q2MIN PRN PRN Reason: Opioid Reversal Stop: 10/04/17 18:45 Naproxen (Naprosyn) 250 mg PO Q12H PRN PRN Reason: Moderate Pain Nitroglycerin (Nitroglycerin) 0.4 mg SL Q5MIN PRN PRN Reason: Chest Pain Stop: 10/04/17 16:00 Last Admin: 04/04/17 16:24 Dose: 0.4 mg - Imaging and Cardiology Echo: pending, report reviewed - EKG Interpretation EKG results cardiology: personally reviewed (ECG showed sinus bradycardia with incomplete right bundle branch block, comparable to previous ECG. Patient noted with history of bradycardia in the 40s to 50s over the past few years.), sinus rhythm, right bundle branch block, other (24-hour telemetry reviewed with average heart rate 55, currently sinus bradycardia 52, lowest heart rate 50 in the morning hours.) Consult Discharge Plan - Plan Referrals: Lucius Vallecillo MD [Primary Care Provider] -
[2017-04-05] MEDS ORDERED: diazePAM 5 MG TABLET PO SCH (09:00)
[2017-04-05] MEDS: *HR* Enoxaparin 40 MG/0.4 ML SYRINGE SQ SCH (09:13)
[2017-04-05] MEDS: Gabapentin 300 MG CAPSULE PO SCH ×3 (10:38→22:09)
--- NOTE | 2017-04-05 11:07 | Internal Med Progress Note ---
Date of Encounter: 04/05/17 Time of Encounter: 11:05 - Assessment and plan (1) Chest pain Current Visit: Yes Status: Acute Assessment and plan: Shabnam Pemberton is a 71 female with PMH hypothyroidism, aortic stenosis and thrombocytopena who presented to [facility] [place] on 04/05/2017 with complaints of chest pain. She was placed in observation status for ACS rule out. 1. Chest pain: presented with chest pain with associated SOB and diaphoresis. EKG showed SB with RBBB. Serial troponins negative. TTE with EF 65%, mild diastolic dysfunction and known aortic stenosis. Chest CTA pending to rule out pulmonary embolism, dissection (has known bicupid aortic valve). Cardiology following 2. Bradycardia: with HRs in 40s-50s. Asymptomatic. Not on kaylee blocking agents. Cont to monitor on tele. Cardiology following 3. Aortic stenosis: per hx. TTE with mild aortic stenosis. 4. Thrombocytopenia: PLTs 139; chronic per chart review. Stable. Cont Lovenox 5. DVT prophylaxis: lovenox Qualifiers: Chest pain type: precordial pain Qualified Code(s): R07.2 - Precordial pain (2) Bradycardia Current Visit: Yes Status: Acute (3) DVT prophylaxis Current Visit: Yes Status: Acute (4) Hypothyroidism Current Visit: Yes Status: Acute Qualifiers: Hypothyroidism type: unspecified Qualified Code(s): E03.9 - Hypothyroidism , unspecified (5) Aortic stenosis Current Visit: Yes Status: Chronic Qualifiers: Cardiac valve disease etiology: etiology unspecified Qualified Code(s): I35.0 - Nonrheumatic aortic (valve) stenosis - Subjective Interval history: Seen and examined at bedside, says she feels beter and wuld likle to go home today. She is hungry and wants to eat. Denies CP, no SOB - Constitutional Vitals: Temp Pulse Resp BP Pulse Ox 97.7 F 45 17 144/76 94 04/05/17 06:36 04/05/17 06:36 04/05/17 06:36 04/05/17 06:36 04/05/17 09:05 General appearance: Present: A&O X 3, no acute distress - Head Head exam: Present: atraumatic, normocephalic - Eye Eye exam: Present: PERRL, conjuntiva pink, sclera anicteric Pupils: Present: PERRL - Neck Neck exam general surgery: Present: supple, trachea midline. Absent: lymphadenopathy - Respiratory Respiratory exam: Present: CTAB. Absent: accessory muscle use, rales, rhonchi, wheezes - Cardiovascular Cardiovascular exam: Present: diastolic murmur, RRR, +S1, +S2, systolic murmur. Absent: gallop, rubs Additional comments: + murmur. Tele: SB - GI/Abdominal GI/Abdominal exam: Present: normal bowel sounds, soft, no peritoneal signs. Absent: distended, tenderness - Extremities Exam Extremities exam: Present: warm, radial pulses palpable and symmetrical. Absent : calf tenderness, cyanotic, pedal edema - Neurological Exam Neurological exam: Present: CN II-XII intact, oriented X3, no focal deficits. Absent: pronater drift, facial droop, speech deficit - Skin Skin exam: Present: dry, intact Internal Medicine: Result - Labs CBC & Chem 7: 04/05/17 05:37 04/05/17 05:37 Labs: Short CBC 04/05/17 Range/Units 05:37 WBC 4.7 (4.3-11.1) K/mcL Hgb 12.5 (11.5-15.4) g/dL Hct 38.4 (35.3-44.9) % Plt Count 139 L (140-400) K/mcL Neutrophils # 2.7 (1.6-8.9) K/mcL BMP 04/05/17 05:37 Sodium 144 Potassium 4.0 Chloride 107 Carbon Dioxide 31 H BUN 15 Creatinine 0.81 Glucose 107 H Calcium 9.6 Cardiac Enzymes 04/04/17 04/05/17 Range/Units 22:08 05:37 Troponin I 0.00 0.00 (0-0.03) ng/mL - Impressions Impressions Echocardiogram 04/04/17 19:06 Impressions: Normal LV systolic function, LVEF 65%. Mild left ventricular diastolic dysfunction. Normal right ventricular size and function. Aortic valve not well visualized. She has a known bicuspid aortic valve based on a prior MAYTE from 08/2014. Mild aortic stenosis. No aortic regurgitation. No evidence of pulmonary hypertension. Left Ventricular Wall Motion: Rest Echo Findings All wall segments showed normal motion. Findings: Study Quality * Suboptimal echo windows. ECG Findings * Sinus rhythm and sinus bradycardia. Left Ventricle * Normal LV systolic function, LVEF 65%. * Normal LV chamber size and wall thickness. * Mild left ventricular diastolic dysfunction. Right Ventricle * Normal right ventricular size and function. Left Atrium * Normal left atrial size. Right Atrium * Normal right atrial size. Aorta * Normally sized aortic root. Pericardium * There is no pericardial effusion present. IVC * Normal IVC dimensions and inspiratory collapse. Aortic Valve * Aortic valve not well visualized. She has a known bicuspid aortic valve based on a prior MAYTE from 08/2014. * Mild aortic stenosis. * No aortic regurgitation. Mitral Valve * Normal mitral valve structure. * No mitral stenosis. * Trace mitral regurgitation. Tricuspid Valve * Normal tricuspid valve structure. * No tricuspid stenosis. * Trace tricuspid regurgitation. * No evidence of pulmonary hypertension. Pulmonic Valve * Pulmonic valve not well visualized. * No pulmonic stenosis. * Trace pulmonic regurgitation. - VTE Documentation of Mechanical Device: Graduated compression elastic hosiery Consult Discharge Plan - Plan Referrals: Lucius Valleclilo MD [Primary Care Provider] -
[2017-04-05] MEDS: Levofloxacin 750 MG/150 ML 750 MG/150 ML BAG IVPB SCH (16:08)
[2017-04-05] MEDS: Ampicillin/Sulbactam 1,500 MG in 0.9 % Sodium Chloride Mini Bag 100 ML IVPB SCH ×2 (17:37→23:30)
[2017-04-05 18:28] LABS: Adenovirus Not Detected (Not Detect); Bordetella Pertussis Not Detected (Not Detect); Chlamydophila pneumoniae Not Detected (Not Detect); Coronavirus 229E Not Detected (Not Detect); Coronavirus HKU1 Not Detected (Not Detect); Coronavirus NL63 Not Detected (Not Detect); Coronavirus OC43 Not Detected (Not Detect); Human Metapneumovirus Not Detected (Not Detect); Human Rhinovirus/Enterovirus Not Detected (Not Detect); Influenza A Subtype 2009 H1 Not Detected (Not Detect); Influenza A Untypeable Not Detected (Not Detect); Influenza B Not Detected (Not Detect); Mycoplasma pneumoniae Not Detected (Not Detect); Parainfluenza Virus 1 Not Detected (Not Detect); Parainfluenza Virus 2 Not Detected (Not Detect); Parainfluenza Virus 3 Not Detected (Not Detect); Parainfluenza Virus 4 Not Detected (Not Detect); Respiratory Syncytial Virus Not Detected (Not Detect)
--- NOTE | 2017-04-05 21:48 | Electrocardiograph Report ---
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
[2017-04-05] MEDS: Acetaminophen 325 MG TABLET PO PRN (22:08)
[2017-04-05] MEDS: diazePAM 5 MG TABLET PO SCH (23:30)
[2017-04-06 05:24] LABS: Hematocrit 40.1 % (35.3-44.9); Hemoglobin 13.1 g/dL (11.5-15.4); Mean Corpuscular HGB Conc 32.7 g/dL (31.6-35.5); Mean Corpuscular Hemoglobin 29.4 pg (28.0-33.3); Mean Corpuscular Volume 90.1 fL (83.0-100.0); Mean Platelet Volume 10.1 fL (9.4-12.4); Platelet Count 141 K/mcL (140-400); Red Blood Count 4.45 M/mcL (3.82-4.97); Red Cell Distribution Width 15.3 % (11.5-14.5)
[2017-04-06 05:40] LABS: Alanine Aminotransferase 19 Units/L (0-55); Albumin 3.4 g/dL (3.5-5.0); Albumin/Globulin Ratio 1.1 (1.1-2.2); Alkaline Phosphatase 55 Units/L (38-126); Aspartate Amino Transferase 21 Units/L (5-34); BUN/Creatinine Ratio 21 (6-26); Bilirubin,Total 0.5 mg/dL (0.2-1.2); Blood Urea Nitrogen 18 mg/dL (7-20); Calcium 9.2 mg/dL (8.6-10.8); Carbon Dioxide 28 mEq/L (19-29); Chloride 109 mEq/L (98-109); Globulin 3.1 g/dL (2.4-3.5); Glucose 102 mg/dL (70-99); Osmolality,Calculated 302 (280-300); Potassium 3.9 mEq/L (3.5-4.5); Sodium 145 mEq/L (136-145); Total Protein 6.5 g/dL (6.0-8.3); eGFR For African Americans > 60 (> 60); eGFR For Non-African Americans > 60 (> 60)
[2017-04-06] MEDS: Ampicillin/Sulbactam 1,500 MG in 0.9 % Sodium Chloride Mini Bag 100 ML IVPB SCH ×3 (06:23→17:12)
[2017-04-06] MEDS: *HR* Enoxaparin 40 MG/0.4 ML SYRINGE SQ SCH (06:23)
--- NOTE | 2017-04-06 08:21 | Electrocardiograph Report ---
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
[2017-04-06] MEDS: diazePAM 5 MG TABLET PO SCH ×2 (09:36→21:15)
[2017-04-06] MEDS: Gabapentin 300 MG CAPSULE PO SCH ×3 (09:36→21:14)
[2017-04-06] MEDS ORDERED: Ondansetron 4 MG/2 ML VIAL IVP PRN (11:26)
--- NOTE | 2017-04-06 11:45 | Internal Med Progress Note ---
Date of Encounter: 04/06/17 Time of Encounter: 11:57 - Assessment and plan (1) Chest pain Current Visit: Yes Status: Acute Assessment and plan: Shabnam Pemberton is a 71 female with PMH hypothyroidism, aortic stenosis and thrombocytopena who presented to [facility] on 04/05/2017 with complaints of chest pain. She was placed in observation status for ACS rule out. 1. Pneumonia: CTA chest with bilateral lower and right upper lobe patchy tree-in -bud opacities, concerning for atypical or aspiration pneumonia. Clinically the patient does not appear to be toxic or acute. She is mildly dyspneic on exam. Start IV Levaquin, Unasyn to cover for atypicals, gram-positive and possible aspiration. Urinary antigens, respiratory PCR negative. Sputum culture pending. Recommend repeat imaging to follow up resolution of pneumonia. 2. Chest pain: presented with chest pain with associated SOB and diaphoresis. EKG showed SB with RBBB. Serial troponins negative. TTE with EF 65%, mild diastolic dysfunction and known aortic stenosis. Chest CTA negative for pulmonary embolism, no evidence of dissection. Evaluated by Cardiology who chest pain atypical, PR ruled out. Can follow up outpatient with cardiology. 3. Bradycardia: with HRs in 40s-50s. Asymptomatic; no lightheadedness, no dizziness, no syncope. Not on kaylee blocking agents. Evaluated by Cardiology who noted chronic sinus bradycardia. No indication for invasive evaluation at this time can follow up outpatient with cardiology. Continue to monitor on telemetry 4. Aortic stenosis: per hx. 04/05/2017 TTE with mild aortic stenosis, stable. 5. Thrombocytopenia: chronic per chart review. Stable. PLT 141 on 04/06 6. DVT prophylaxis: lovenox Qualifiers: Chest pain type: precordial pain Qualified Code(s): R07.2 - Precordial pain (2) Bradycardia Current Visit: Yes Status: Chronic (3) DVT prophylaxis Current Visit: Yes Status: Acute (4) Hypothyroidism Current Visit: Yes Status: Acute Qualifiers: Hypothyroidism type: unspecified Qualified Code(s): E03.9 - Hypothyroidism , unspecified (5) Aortic stenosis Current Visit: Yes Status: Chronic Qualifiers: Cardiac valve disease etiology: etiology unspecified Qualified Code(s): I35.0 - Nonrheumatic aortic (valve) stenosis - Subjective Interval history: Seen and examined at bedside, patient says she feels okay today, says she didn' t sleep well last night and would like to go home as soon as she can. Has a non- productive cough, no SOB. No CP - Constitutional Vitals: Temp Pulse Resp BP Pulse Ox 98.3 F 56 16 144/87 92 04/06/17 11:17 04/06/17 11:17 04/06/17 11:17 04/06/17 11:17 04/06/17 11:17 General appearance: Present: A&O X 3, no acute distress Internal Medicine: Result - Labs CBC & Chem 7: 04/06/17 04:30 04/06/17 04:30 Labs: Short CBC 04/06/17 Range/Units 04:30 WBC 4.5 (4.3-11.1) K/mcL Hgb 13.1 (11.5-15.4) g/dL Hct 40.1 (35.3-44.9) % Plt Count 141 (140-400) K/mcL BMP 04/06/17 04:30 Sodium 145 Potassium 3.9 Chloride 109 Carbon Dioxide 28 BUN 18 Creatinine 0.87 Glucose 102 H Calcium 9.2 Liver Function 04/06/17 Range/Units 04:30 Total Bilirubin 0.5 (0.2-1.2) mg/dL AST 21 (5-34) Units/L ALT 19 (0-55) Units/L Alkaline Phosphatase 55 (38-126) Units/L Albumin 3.4 L (3.5-5.0) g/dL - Impressions Impressions Chest CTA 04/05/17 13:00 IMPRESSION: No evidence of pulmonary embolism. There are mild patchy tree-in-bud opacities within both lower lobes and the right upper lobe which may be related to atypical infection or possibly aspiration. D/ / Tammy Mcgee MD / Tammy Mcgee MD Interpreting Provider: Tammy Mcgee MD - VTE Documentation of Mechanical Device: Intermittent pneumatic compression device Consult Discharge Plan - Plan Referrals: Lucius Vallecillo MD [Primary Care Provider] -
[2017-04-06] MEDS: Levofloxacin 750 MG/150 ML 750 MG/150 ML BAG IVPB SCH (15:15)
[2017-04-06] MEDS: Acetaminophen 325 MG TABLET PO PRN (18:32)
[2017-04-07] MEDS: Ampicillin/Sulbactam 1,500 MG in 0.9 % Sodium Chloride Mini Bag 100 ML IVPB SCH ×2 (00:05→05:58)
[2017-04-07 04:50] LABS: Hematocrit 41.4 % (35.3-44.9); Hemoglobin 13.5 g/dL (11.5-15.4); Mean Corpuscular HGB Conc 32.6 g/dL (31.6-35.5); Mean Corpuscular Hemoglobin 29.5 pg (28.0-33.3); Mean Corpuscular Volume 90.4 fL (83.0-100.0); Mean Platelet Volume 10.1 fL (9.4-12.4); Platelet Count 154 K/mcL (140-400); Red Blood Count 4.58 M/mcL (3.82-4.97); Red Cell Distribution Width 15.5 % (11.5-14.5)
[2017-04-07 05:01] LABS: Albumin 3.5 g/dL (3.5-5.0); Albumin/Globulin Ratio 1.1 (1.1-2.2); Bilirubin,Total 0.5 mg/dL (0.2-1.2); Calcium 9.7 mg/dL (8.6-10.8); Globulin 3.3 g/dL (2.4-3.5); Potassium 4.2 mEq/L (3.5-4.5); Total Protein 6.8 g/dL (6.0-8.3)
[2017-04-07] MEDS: *HR* Enoxaparin 40 MG/0.4 ML SYRINGE SQ SCH (05:58)
[2017-04-07] MEDS: Gabapentin 300 MG CAPSULE PO SCH ×2 (08:06→14:57)
[2017-04-07] MEDS: diazePAM 5 MG TABLET PO SCH (08:06)
[2017-04-07] MEDS ORDERED: 0.9 % Sodium Chloride 1,000 ML IVC ONE (11:42)
[2017-04-07 15:35] VITALS: BP 137/78
[2017-04-07 15:50] LABS: Alanine Aminotransferase 21 Units/L (0-55); Albumin 3.6 g/dL (3.5-5.0); Albumin/Globulin Ratio 1.2 (1.1-2.2); Alkaline Phosphatase 56 Units/L (38-126); Aspartate Amino Transferase 19 Units/L (5-34); BUN/Creatinine Ratio 18 (6-26); Bilirubin,Total 0.4 mg/dL (0.2-1.2); Blood Urea Nitrogen 18 mg/dL (7-20); Calcium 9.4 mg/dL (8.6-10.8); Carbon Dioxide 32 mEq/L (19-29); Chloride 108 mEq/L (98-109); Globulin 3.1 g/dL (2.4-3.5); Glucose 111 mg/dL (70-99); Osmolality,Calculated 303 (280-300); Sodium 145 mEq/L (136-145); Total Protein 6.7 g/dL (6.0-8.3); eGFR For African Americans > 60 (> 60); eGFR For Non-African Americans 55 (> 60)
--- NOTE | 2017-04-07 17:10 | Discharge Summary ---
Date of Encounter: 04/07/17 Time of Encounter: 17:05 - Discharge Diagnosis (1) Chest pain Priority: Primary Status: Acute Comments: Shabnam Pemberton is a 71 female with PMH hypothyroidism, aortic stenosis and thrombocytopena who presented to [facility] on 04/05/2017 with complaints of chest pain. She was placed in observation status for ACS rule out. She was found to have pneumonia and was treated with IV ATB. She was discharged home on oral antibiotics in stable condition with outpatient follow-up. 1. Pneumonia: CTA chest with bilateral lower and right upper lobe patchy tree-in -bud opacities, concerning for atypical or aspiration pneumonia. Clinically the patient does not appear to be toxic or acute. Received 3 days of IV Levaquin and Unasyn to cover for atypicals and possible aspiration. Urinary antigens, respiratory PCR negative. Sputum culture with normal upper respiratory violet, no pathogens isolated. Evaluated by speech therapy and no evidence of aspiration. Discharge home on Augmentin and azithromycin. Will need repeat imaging to follow up resolution of pneumonia with repeat chest CT in 4-6 weeks 2. Chest pain: presented with chest pain with associated SOB and diaphoresis. EKG showed SB with RBBB. Serial troponins negative. TTE with EF 65%, mild diastolic dysfunction and known aortic stenosis. Chest CTA negative for pulmonary embolism, no evidence of dissection. Evaluated by Cardiology who suspected atypical chest pain, CT ruled out. Can follow up outpatient with cardiology. Add baby ASA. 3. Bradycardia: with HRs in 40s-50s. Asymptomatic; no lightheadedness, no dizziness, no syncope. Not on kaylee blocking agents. Evaluated by Cardiology who noted chronic sinus bradycardia. No indication for invasive evaluation at this time can follow up outpatient with cardiology. 4. Aortic stenosis: per hx. 04/05/2017 TTE with mild aortic stenosis, stable. 5. Thrombocytopenia: chronic per chart review. Stable. PLT 154 at discharge 6. JEREMIE: Creatinine peaked at 1.18; baseline normal. Possibly secondary to decreased PO intake. Creatinine improved with IV fluids. Home NSAIDs stopped. Recommend repeat CMP with PCP. 7. Hyperlipidemia: LDL 113; add statin. Recommend repeat lipid panel in 3-6 months with PCP Qualifiers: Chest pain type: precordial pain Qualified Code(s): R07.2 - Precordial pain (2) Bradycardia Priority: Primary Status: Chronic (3) Hypothyroidism Priority: Primary Status: Acute Qualifiers: Hypothyroidism type: unspecified Qualified Code(s): E03.9 - Hypothyroidism , unspecified (4) Aortic stenosis Priority: Primary Status: Chronic Qualifiers: Cardiac valve disease etiology: etiology unspecified Qualified Code(s): I35.0 - Nonrheumatic aortic (valve) stenosis - Discharge Medications Prescriptions: Amoxicillin/Clavulanate [Augmentin] 875 mg PO BIDWM #14 tablet Aspirin [Lo-Dose Aspirin EC] 81 mg PO DAILY #30 tablet. Azithromycin [Azithromycin 6-Tab Pack] 250 mg PO PER PKG DI #6 tab Home Medications: Gabapentin [Neurontin] 300 mg PO TID 06/17/16 [History] Levothyroxine [Synthroid] 50 mcg PO QAM 06/17/16 [History] diazePAM [Valium] 5 mg PO DAILY 06/17/16 [History] Calcium Carbonate [Calcium] 500 mg PO DAILY 11/13/16 [History] Oxycodone HCl 10 mg PO TID PRN 04/04/17 [History] Amoxicillin/Clavulanate [Augmentin] 875 mg PO BIDWM #14 tablet 04/07/17 [Rx] Aspirin [Lo-Dose Aspirin EC] 81 mg PO DAILY #30 tablet. 04/07/17 [Rx] Azithromycin [Azithromycin 6-Tab Pack] 250 mg PO PER PKG DI #6 tab 04/07/17 [Rx] Allergies/Adverse Reactions: 3 Allergy/AdvReac Type Severity Reaction Status Date / Time ibuprofen [From Motrin] AdvReac Watery Eye Verified 11/13/16 07:45 Procedures/tests Complete & Pending: Procedures Performed prior 72 hours Category Date Time Status CTA chest [CT angio chest] [CT] Routine Cat Scan 04/05/17 13:00 Completed EV echocardiogram Routine Y 04/04/17 19:06 Completed Date of admission: 04/04/17 17:33 Primary care physician: Lucius Vallecillo Consults: 04/04/17 19:53 Consult to Cardiology [CONS] Routine Comment: Consulting Provider: Cardiology Joaquina Reason for Consult: 71F here with chest pain. History of aortic stenosis lost to follow up. Bradycardic with HR in the 50s. Call Completed: No 04/06/17 10:19 Consult to Speech Therapy [CONS] Routine Comment: Evaluate, develop and implement POC Reason for Consult: bedside swallow eval. Chest CTA with possible aspiration pneumonia Call Completed: No Discharging clinician: Deepali Menendez Anticipated date of discharge: 04/07/17 - Patient Status Disposition: Home, Self-Care Functional capacity at discharge: independent ambulation Overall status at discharge: patient is back to baseline - Discharge Instructions Follow Up With: Lucius Vallecillo MD [Primary Care Provider] - Additional Instructions: Please follow-up with your family doctor for repeat lab work. It is recommended that you have a repeat CMP to follow up on your kidney function. You also need to have a repeat CT of her chest in 4-6 weeks to follow up with pneumonia - Diet and Activity Activity: resume usual activities as tolerated Diet: advance to your usual diet Interval History: Seen and examined at bedside. Patient says she feels better and would like to go home. Her creatinine slightly elevated, says she has not had much of an appetite since being in the hospital. Has not been eating and drinking like she normally does at home. She is agreeable to IV fluids with repeat CMP. Denies chest pain, no shortness of breath. Hospital course: See assessment and plan for hospital course - Time Spent with Patient Total time spent providing and/or coordinating discharge services: - Constitutional Vitals: Temp Pulse Resp BP Pulse Ox 97.8 F 57 16 137/78 92 04/07/17 15:32 04/07/17 15:32 04/07/17 15:32 04/07/17 15:32 04/07/17 15:32 General appearance: Present: A&O X 3, no acute distress - Head Head exam: Present: atraumatic, normocephalic - Eye Eye exam: Present: PERRL, conjuntiva pink, sclera anicteric Pupils: Present: PERRL - Neck Neck exam general surgery: Present: supple, trachea midline. Absent: lymphadenopathy - Respiratory Respiratory exam: Present: CTAB. Absent: accessory muscle use, rales, rhonchi, wheezes - Cardiovascular Cardiovascular exam: Present: RRR, +S1, +S2. Absent: diastolic murmur, gallop, rubs, systolic murmur - GI/Abdominal GI/Abdominal exam: Present: normal bowel sounds, soft, no peritoneal signs. Absent: distended, tenderness - Extremities Exam Extremities exam: Present: warm, radial pulses palpable and symmetrical. Absent : calf tenderness, cyanotic, pedal edema - Neurological Exam Neurological exam: Present: CN II-XII intact, oriented X3, no focal deficits. Absent: pronater drift, facial droop, speech deficit - Skin Skin exam: Present: dry, intact - VTE Documentation of Mechanical Device: Graduated compression elastic hosiery
[2017-04-08] MEDS ORDERED: Levofloxacin 750 MG/150 ML 750 MG/150 ML BAG IVPB SCH (15:00)
== END 2017-04-07 18:20 | disposition home or self-care (01) ==
LOC: EMEROO 15:30 → 3BNU 15:30
PROVIDERS: ADMIT Hospitalist; ATTEND Registered Nurse